=== PATIENT | male | born 1965 | race Caucasian/White ===

== ENCOUNTER 2017-05-29 20:53 | Emergency (ER) | payer BC ==
[~2017-05-29] VITALS: Ht 182.9 cm; Wt 106.6 kg
[2017-05-29] MEDS ORDERED: TORADOL IV STA (21:10)
[2017-05-29] MEDS ORDERED: DECADRON IV STA (21:10)
[2017-05-29] MEDS ORDERED: GEODON IM STA (21:12)
--- NOTE | 2017-05-29 21:12 | ER.PDOC ---
General Chief Complaint: Requesting Medical Care Stated Complaint: BACK PAIN Time seen by MD: 21:01 Source: patient Exam Limitations: no limitations History of Present Illness Initial Comments lbp 3 days Lcvat radiate to butt + hx hnp similar pain OOt lives in [place] Timing/Duration: just prior to arrival Severity/Quality: moderate Radiation: buttocks Method of Injury: bending Associated Symptoms: numbness in legs/feet, lower back pain Prior symptoms/Treatment: Similar symptoms previous Allergies: Coded Allergies: Penicillins (Verified Allergy, Unknown, Hives, 05/29/17) Past Medical History Medical History: no pertinent history Surgical History: appendectomy Social History Smoking: non-smoker Alcohol Use: occassionally Drug Use: none Review of Systems Constitutional: denies fever EENTM: denies eye pain Respiratory: denies cough Cardiovascular: denies chest pain Gastrointestinal: denies abdominal pain All Other Systems: Reviewed and Negative Physical Exam General Appearance: Anxious HEENT: PERRL/EOMI, Normal ENT Inspection, TMs Normal, Pharynx Normal Neck: Non-Tender, Normal Alignment Cardiovascular/Respiratory: Regular Rate, Rhythm, No M/R/G, Normal Peripheral Pulses, No JVD, Normal Breath Sounds, No Respiratory Distress Gastrointestinal: Normal Bowel Sounds, No Organomegaly, No Pulsatile Mass, Non Tender, Soft Back: Normal Inspection, No CVA Tenderness, No Vertebral Tenderness Neuro/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: 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, 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, mood/effect nml, No Motor/Sensory Deficits, Relexes nml Skin: Normal Color, Warm/Dry Results/Orders Results/Orders Administered Medications Medications (Trade) Dose Ordered Sig/Federico Route PRN Reason Start Time Stop Time Status Last Admin Dose Admin Ketorolac Tromethamine (Toradol) 30 mg STAT STAT IV 05/29/17 21:10 05/29/17 21:11 UNV 05/29/17 21:26 Dexamethasone Sodium Phosphate (Decadron) 4 mg STAT STAT IV 05/29/17 21:10 05/29/17 21:11 UNV 05/29/17 21:26 Sodium Chloride 1,000 ml @ 0 mls/hr Q0M ONCE IV 05/29/17 21:30 05/29/17 21:31 UNV 05/29/17 21:27 Progress Progress ua neg Departure Time of Disposition: 21:58 Disposition: 01 HOME, SELF-CARE Impression: Primary Impression: Pain in lower back Condition: Stable Referrals: PCP,UNKNOWN (PCP) PRIMARY CARE PROVIDER Additional Instructions: tylenol # 3 po prn LEIGH ANN MONTANO MD May 29, 2017 21:12
[2017-05-29] MEDS ORDERED: NS 1000ML 1,000 ML ONE (21:15)
[2017-05-29] MEDS ORDERED: TORADOL ONE (21:16)
[2017-05-29] MEDS ORDERED: DECADRON ONE (21:16)
[2017-05-29] MEDS ORDERED: NS 1000ML 1,000 ML IV ONE (21:30)
[2017-05-29 21:42] LABS: BILIRUBIN,URINE NEGATIVE (NEGATIVE); UROBILINOGEN,URINE NORMAL (NEGATIVE)
[2017-05-29] MEDS ORDERED: MORPHINE SULFATE IV STA (21:43)
[2017-05-29 21:44] LABS: APPEARANCE,URINE CLEAR (CLEAR); UA COLOR YELLOW (YELLOW)
[2017-05-29] MEDS ORDERED: MORPHINE SULFATE ONE (21:58)
== END 2017-05-29 22:26 | disposition home or self-care (01) ==
LOC: ER 20:53
DX: M54.5 Low back pain (principal); Z88.0 Allergy status to penicillin; Z90.49 Acquired absence of other specified parts of digestive tract
CPT/HCPCS: 81002; 96361; 96374; 96375; 99284; J1100; J1885; J2270; J7030